=== PATIENT | male | born 1960 | race Caucasian/White ===

== ENCOUNTER 2019-02-06 09:46 | Day surgery (SDC) | payer OTHER ==
[2019-02-06] MEDS ORDERED: LACTATED RINGERS 1,000 ML IV ONE ×2 (10:30→12:31)
[2019-02-06] MEDS ORDERED: ONDANSETRON 4 MG/2 ML VIAL ONE (11:08)
[2019-02-06] MEDS ORDERED: MIDAZOLAM 2 MG/2 ML VIAL IVP ONE ×2 (11:20→11:40)
[2019-02-06] MEDS ORDERED: fentaNYL 250 MCG/5 ML VIAL IVP ONE (11:20)
[2019-02-06] MEDS ORDERED: KETAMINE 500 MG/10 ML VIAL IVP ONE (11:40)
[2019-02-06] MEDS ORDERED: PROPOFOL 200 MG/20 ML VIAL IVP ONE (11:40)
[2019-02-06 13:02] VITALS: BP 135/93
== END 2019-02-06 09:47 | disposition home or self-care (01) ==
LOC: SDS 09:46
PROVIDERS: ATTEND Surgery
PROC: 0DJD8ZZ Inspection of Lower Intestinal Tract, Via Natural or Artificial Opening Endoscopic (ICD-10-PCS; principal; 2019-02-06 11:45)
DX: Z12.11 Encounter for screening for malignant neoplasm of colon (principal); K57.90 Diverticulosis of intestine, part unspecified, without perforation or abscess without bleeding; K64.8 Other hemorrhoids; G35 Multiple sclerosis; Z87.891 Personal history of nicotine dependence; Z87.11 Personal history of peptic ulcer disease
CPT/HCPCS: 45378; J3010; J7120